=== PATIENT | male | born 1975 | race Two or more races ===

== ENCOUNTER → 2023-04-25 | Outpatient (CLI) | payer BC ==
[2023-04-26 12:24] LABS: CREATININE 1.3 mg/dL (0.5-1.5); POTASSIUM 4.2 mmol/L (3.5-5.1)
[2023-04-26 12:50] LABS: HEMOGLOBIN A1C 12.8 % (4.0-6.0)
[2023-04-26 13:36] LABS: BASOPHILS # (AUTO) 0.07 K/uL (0.00-0.20); BASOPHILS % (AUTO) 0.6 % (0.0-5.0); EOSINOPHILS # (AUTO) 0.27 K/uL (0.00-0.70); EOSINOPHILS % (AUTO) 2.4 % (0.0-8.0); HEMATOCRIT 52.5 % (42-54); IMMATURE GRANULOCYTE ABSOLUTE 0.05 K/uL (0-1); LYMPHOCYTES # (AUTO) 2.9 K/uL (1.0-4.8); MEAN CORPUSCULAR HEMOGLOBIN 26.7 pg (27.0-33.0); MEAN CORPUSCULAR HGB CONC 29.7 g/dL (32.0-36.0); MEAN CORPUSCULAR VOLUME 89.9 fL (79-99); MONOCYTES # (AUTO) 0.9 K/uL (0.1-1.0); MONOCYTES % (AUTO) 7.7 % (3.0-13.0); NEUTROPHILS % (AUTO) 62.9 % (40.0-77.0); PLATELET COUNT (AUTO) 191 K/uL (130-400); RED BLOOD CELL COUNT(AUTO) 5.84 MIL/uL (4.50-6.20); RED CELL DISTRIBUTION WIDTH 16.3 % (11.0-15.5); WHITE BLOOD COUNT (AUTO) 11.2 K/uL (4.8-10.8)
== END | disposition home or self-care (01) ==
LOC: LAB 09:57
PROVIDERS: ATTEND Student in an Organized Health Care Education/Training Program
DX: I11.9 Hypertensive heart disease without heart failure (principal); E66.01 Morbid (severe) obesity due to excess calories; I42.8 Other cardiomyopathies; R73.03 Prediabetes; E78.5 Hyperlipidemia, unspecified
CPT/HCPCS: 36415; 80048; 80061; 83036; 85025

== ENCOUNTER 2023-05-06 15:10 | Inpatient (IN) | payer BC ==
[~2023-05-06] VITALS: Ht 154.9 cm; Wt 102.5 kg
[2023-05-06 18:31] LABS: BASOPHILS # (AUTO) 0.09 K/uL (0.00-0.20); BASOPHILS % (AUTO) 0.8 % (0.0-5.0); EOSINOPHILS # (AUTO) 0.19 K/uL (0.00-0.70); EOSINOPHILS % (AUTO) 1.7 % (0.0-8.0); IMMATURE GRANULOCYTE ABSOLUTE 0.06 K/uL (0-1); LYMPHOCYTES # (AUTO) 3.5 K/uL (1.0-4.8); LYMPHOCYTES % (AUTO) 31.3 % (21.0-51.0); MEAN CORPUSCULAR HEMOGLOBIN 26.8 pg (27.0-33.0); MEAN CORPUSCULAR HGB CONC 32.4 g/dL (32.0-36.0); MEAN CORPUSCULAR VOLUME 82.8 fL (79-99); MONOCYTES # (AUTO) 0.7 K/uL (0.1-1.0); MONOCYTES % (AUTO) 6.4 % (3.0-13.0); NEUTROPHILS # (AUTO) 6.5 K/uL (1.8-7.7); NEUTROPHILS % (AUTO) 59.3 % (40.0-77.0); PLATELET COUNT (AUTO) 201 K/uL (130-400); RED BLOOD CELL COUNT(AUTO) 6.16 MIL/uL (4.50-6.20); RED CELL DISTRIBUTION WIDTH 15.5 % (11.0-15.5)
[2023-05-06 18:33] LABS: APPEARANCE,URINE CLEAR (CLEAR); BILIRUBIN,URINE NEGATIVE (NEGATIVE); COLOR,URINE LIGHT-YELLOW (YELLOW); GLUCOSE, URINE (UA) NEGATIVE (NEGATIVE); KETONES,URINE NEGATIVE (NEGATIVE); LEUKOCYTE ESTERASE ,URINE NEGATIVE Leu/uL (NEGATIVE); NITRATE,URINE NEGATIVE (NEGATIVE); OCCULT BLOOD,URINE NEGATIVE (NEGATIVE); PH,URINE 5.5 (5.0-8.0); PROTEIN,URINE 100 mg/dL (NEGATIVE); UROBILINOGEN,URINE 0.2 mg/dL (0.2-1.0)
[2023-05-06 18:36] LABS: ADD UA MICROSCOPIC YES
[2023-05-06 18:38] LABS: MUCUS,URINE RARE LPF (None Seen); OTHER CASTS, URINE 1 /LPF (None Seen); RBC,URINE 0-1 /HPF (0-1)
[2023-05-06 18:39] LABS: CREATININE 1.4 mg/dL (0.5-1.5); POTASSIUM 3.7 mmol/L (3.5-5.1)
[2023-05-06 18:44] LABS: ALBUMIN 3.7 g/dL (3.5-5.0); BILIRUBIN,TOTAL 0.6 mg/dL (0.2-1.0); TOTAL PROTEIN, SERUM 8.1 g/dL (6.0-8.3)
[2023-05-06 19:38] LABS: ERYTHROCYTE SEDIMENTATION RATE 29 MM/HR (0-15)
[2023-05-06] MEDS ORDERED: HEPARIN 1,000 UNIT VIAL IVP SCH (20:00)
[2023-05-06] MEDS: HEPARIN 25,000 UNITS/250ML D5W 250 ML IV SCH (20:16)
[2023-05-06] MEDS ORDERED: SACU1TAB PO (20:23)
[2023-05-06] MEDS ORDERED: BUME1TAB7 PO (20:23)
[2023-05-06] MEDS ORDERED: CARV12.511 PO (20:23)
[2023-05-06] MEDS ORDERED: METF-526 PO (20:23)
[2023-05-06] MEDS ORDERED: HEPARIN 5,000 UNIT VIAL IV ONE (20:30)
[2023-05-06] MEDS ORDERED: LACTULOSE 20 GM/30 ML UDCUP PO PRN (20:30)
[2023-05-06] MEDS ORDERED: ONDANSETRON 4MG INJ IV PRN (20:30)
[2023-05-06] MEDS ORDERED: ACETAMINOPHEN 325 MG TAB PO PRN ×2 (20:30)
[2023-05-06 20:31] LABS: INR < 0.93 (0.85-1.15); PROTHROMBIN TIME 10.5 SEC (9.6-11.6)
[2023-05-06 20:32] LABS: PARTIAL THROMBOPLASTIN TIME 31.6 SEC (26.3-35.5)
[2023-05-06] MEDS: FAMOTIDINE 20MG TAB PO SCH (21:06)
[2023-05-06] MEDS: INSULIN HUMULIN R 100 UNIT/ML 3ML SQ SCH (21:07)
[2023-05-07] VITALS (9 sets, daily range): BP systolic 119–155; BP diastolic 84–99; PULSE 80–94; RESP 16–24; O2SAT 98–99
[2023-05-07 02:39] LABS: INR < 0.93 (0.85-1.15); PROTHROMBIN TIME 10.5 SEC (9.6-11.6)
[2023-05-07] MEDS ORDERED: MORPHINE 2 MG SYG IVP PRN (04:00)
[2023-05-07] MEDS: MORPHINE 2 MG SYG IVP PRN ×2 (04:05→09:20)
[2023-05-07 08:56] LABS: INR < 0.93 (0.85-1.15); PROTHROMBIN TIME 10.7 SEC (9.6-11.6)
[2023-05-07 08:57] LABS: PARTIAL THROMBOPLASTIN TIME 52.1 SEC (26.3-35.5)
[2023-05-07] MEDS: FAMOTIDINE 20MG TAB PO SCH ×2 (09:19→20:30)
[2023-05-07] MEDS: INSULIN HUMULIN R 100 UNIT/ML 3ML SQ SCH ×4 (09:21→20:24)
[2023-05-07] MEDS: HEPARIN 25,000 UNITS/250ML D5W 250 ML IV SCH (13:24)
[2023-05-07] MEDS ORDERED: IOHEXOL 350 MG/ML 100ML INFUS..BTL IV ONE (14:43)
[2023-05-07] MEDS ORDERED: IOHEXOL-350 50ML VIAL IV ONE (14:44)
[2023-05-08 00:28] VITALS: BP 130/88; PULSE 78; RESP 18
[2023-05-08 04:27] LABS: HEMATOCRIT 49.6 % (42-54); MEAN CORPUSCULAR HEMOGLOBIN 26.8 pg (27.0-33.0); MEAN CORPUSCULAR HGB CONC 31.3 g/dL (32.0-36.0); MEAN CORPUSCULAR VOLUME 85.8 fL (79-99); RED BLOOD CELL COUNT(AUTO) 5.78 MIL/uL (4.50-6.20); RED CELL DISTRIBUTION WIDTH 15.3 % (11.0-15.5); WHITE BLOOD COUNT (AUTO) 13.1 K/uL (4.8-10.8)
[2023-05-08 04:45] VITALS: BP 121/72; PULSE 87; RESP 18
[2023-05-08 04:55] LABS: ALBUMIN 3.5 g/dL (3.5-5.0); BILIRUBIN,TOTAL 0.4 mg/dL (0.2-1.0); CREATININE 1.5 mg/dL (0.5-1.5); MAGNESIUM 1.9 mg/dL (1.80-2.40); POTASSIUM 3.7 mmol/L (3.5-5.1); TOTAL PROTEIN, SERUM 7.6 g/dL (6.0-8.3)
[2023-05-08 07:45] VITALS: BP 126/92; PULSE 87; RESP 20
[2023-05-08 08:00] VITALS: O2SAT 99
[2023-05-08] MEDS: FAMOTIDINE 20MG TAB PO SCH (09:15)
[2023-05-08] MEDS: INSULIN HUMULIN R 100 UNIT/ML 3ML SQ SCH (09:22)
[2023-05-08] MEDS ORDERED: APIX5TAB PO ×2 (09:50→09:51)
[2023-05-08] MEDS ORDERED: METF-527 PO (09:52)
[2023-05-08] MEDS ORDERED: SEMA0.258 SQ (09:56)
[2023-05-08] MEDS ORDERED: APIXABAN 5 MG TABLET ONE (10:30)
== END 2023-05-08 10:50 | disposition home or self-care (01) | DRG 300 ==
LOC: EDH 15:10 → EDHIP 20:08 → 2DH 23:50
PROVIDERS: ADMIT Hospitalist; ATTEND Hospitalist
DX: I82.812 Embolism and thrombosis of superficial veins of left lower extremity (principal); E87.1 Hypo-osmolality and hyponatremia; Z68.41 Body mass index [BMI] 40.0-44.9, adult; I10 Essential (primary) hypertension; E11.51 Type 2 diabetes mellitus with diabetic peripheral angiopathy without gangrene; E66.01 Morbid (severe) obesity due to excess calories; E78.5 Hyperlipidemia, unspecified; Z91.041 Radiographic dye allergy status
CPT/HCPCS: 36415; 71045; 75635; 80053; 81001; 82948; 83735; 84484; 85025; 85027; 85610; 85651; 85730; 93005; 93926; G0378; J1644; J1815; J2270; J2405; Q9967